=== PATIENT | female | born 1950 | race Caucasian/White ===

== ENCOUNTER 2017-06-24 09:35 | Day surgery (SDC) | payer MEDICARE ==
[~2017-06-24] VITALS: Ht 152.4 cm; Wt 60.0 kg
[2017-06-24] MEDS ORDERED: AMLO-147 PO (10:18)
[2017-06-24] MEDS ORDERED: LINA290C PO (10:19)
[2017-06-24] MEDS ORDERED: VALS160T20 PO (10:19)
[2017-06-24] MEDS ORDERED: EZET10TA3 PO (10:20)
[2017-06-24] MEDS ORDERED: CEFAZOLIN 2 GM/50 ML (PMX) 50 ML IVPB SCH (11:30)
[2017-06-24 11:31] VITALS: BP 157/74; PULSE 101; RESP 16
[2017-06-24] MEDS ORDERED: ROPIVACAINE 0.5 % 30 ML VIAL ONE (11:54)
[2017-06-24] MEDS ORDERED: PROPOFOL 0 ML ONE (11:54)
[2017-06-24] MEDS ORDERED: ROCURONIUM 50 MG INJ ONE (11:54)
[2017-06-24] MEDS ORDERED: FENTAnyl 50 MCG/ML VIAL ONE ×2 (11:54→11:55)
[2017-06-24] MEDS ORDERED: MIDAZOLAM 1 MG/ML 2 ML INJ ONE (11:54)
[2017-06-24] MEDS ORDERED: MEPERIDINE 25 MG INJ IV PRN (12:00)
[2017-06-24] MEDS ORDERED: morphine (1 MG/ML) 10ML SYRINGE IV PRN ×3 (12:00)
[2017-06-24] MEDS ORDERED: METOCLOPRAMIDE 10 MG INJ IV PRN (12:00)
[2017-06-24] MEDS ORDERED: FENTAnyl 50 MCG/ML VIAL IV PRN ×3 (12:00)
[2017-06-24] MEDS ORDERED: hydrALAzine 20 MG INJ IV PRN (12:00)
[2017-06-24] MEDS ORDERED: DIPHENHYDRAMINE 50 MG INJ IV PRN (12:00)
[2017-06-24] MEDS ORDERED: ONDANSETRON 4 MG INJ IV PRN (12:00)
[2017-06-24] MEDS ORDERED: LABETALOL HCL 20MG INJ IV PRN (12:00)
[2017-06-24] MEDS ORDERED: EPHEDrine SULFATE 50 MG/5 ML SYG IV PRN (12:00)
[2017-06-24 14:11] LABS: CHOL/HDL RATIO 3.4 RATIO
[2017-06-25] MEDS ORDERED: INFLUENZA VIRUS VACCINE 0.5 ML (DISPENSING) IM* ONE (12:30)
== END 2017-06-24 15:24 | disposition home or self-care (01) ==
LOC: SDS 09:35
PROVIDERS: ATTEND Surgery Surgical Oncology
DX: K80.20 Calculus of gallbladder without cholecystitis without obstruction (principal); Z53.8 Procedure and treatment not carried out for other reasons; I10 Essential (primary) hypertension; E11.9 Type 2 diabetes mellitus without complications
CPT/HCPCS: 80061; 82962; 83036; J2795; J2250; J3010